=== PATIENT | female | born 1970 | race Caucasian/White ===

== ENCOUNTER 2017-09-23 17:48 | Observation (INO) | payer OTHER ==
[~2017-09-23] VITALS: Ht 175.3 cm; Wt 81.9 kg
[~2017-09-23 17:48] MED LIST: AMITRIPTYLINE; BABY ASPIRIN81 M1 PO; CHANTIX1 MG; Carafate PO; ENDOCET 5-3251 EACH PO; K-Dur PO; LEVAQUIN750 MG PO; METOPROLOL; METOPROLOL TART25 MG PO; MOTRIN800 MG PO; NOHOMEMEDS; PERCOCET 5/31 TABLET PO; PRENATAL 1 PLU1 EACH PO; Phenergan PO; Protonix PO; TOPAMAX25 MG PO; ULTRAM50 MG PO; VENTOLIN HFA18 GM IH; Vicodin,Norco 5/325 PO; WELLBUTRIN XL300 MG PO; ZANAFLEX4 MG PO
[2017-09-23 18:42] LABS: HEMATOCRIT 37.2 % (36.0-46.0); HEMOGLOBIN 12.3 G/DL (11.9-15.5); MCHC 33.1 G/DL (30.0-36.0); MCV 90.7 FL (83-99); PLATELET COUNT 301 K/uL (156-360); RBC DIS.WIDTH-CV 14.2 % (11.8-14.6); RBC DIS.WIDTH-SD 47.7 % (39-53); WHITE BLOOD COUNT 8.7 K/uL (4.1-10.2)
[2017-09-23 18:55] LABS: CHLORIDE 105 mEq/L (99-109); POTASSIUM 4.4 mEq/L (3.7-5.4); SODIUM 138 mEq/L (136-147)
[2017-09-23 18:57] LABS: GLUCOSE 108 mg/dL (70-99)
[2017-09-23 19:01] LABS: CREATININE 0.8 mg/dL (0.6-1.3); GFR ESTIMATE (CALCULATED) > 59 mL/min/; UREA NITROGEN (BUN) 17 mg/dL (9-23)
[2017-09-23 19:08] LABS: TROP-I INTERPRETATION NEGATIVE; TROPONIN-I < 0.01 ng/mL (0.0-0.30)
[2017-09-23] MEDS ORDERED: ALPRAZOLAM0.25 M2 PO (22:12)
[2017-09-23] MEDS ORDERED: ENDOCET 5-3251 EACH PO (22:13)
[2017-09-23] MEDS ORDERED: ASPIR 8181 M1 PO (22:15)
[2017-09-23] MEDS ORDERED: CYANOCOBAL1000 MCG/2 IM (22:15)
[2017-09-23 23:38] VITALS: BP 150/74
[2017-09-24 01:28] LABS: TROP-I INTERPRETATION NEGATIVE; TROPONIN-I < 0.01 ng/mL (0.0-0.30)
[2017-09-24 03:50] VITALS: BP 117/63
[2017-09-24 06:20] LABS: HEMATOCRIT 34.1 % (36.0-46.0); MCHC 32.3 G/DL (30.0-36.0); PLATELET COUNT 259 K/uL (156-360); RBC DIS.WIDTH-CV 14.3 % (11.8-14.6); RBC DIS.WIDTH-SD 47.7 % (39-53); RED BLOOD COUNT 3.79 M/uL (3.80-5.20); WHITE BLOOD COUNT 8.3 K/uL (4.1-10.2)
[2017-09-24 06:39] LABS: TROP-I INTERPRETATION NEGATIVE; TROPONIN-I < 0.01 ng/mL (0.0-0.30)
[2017-09-24 06:44] LABS: CHLORIDE 107 MEQ/L (99-109); CREATININE 0.8 MG/DL (0.6-1.3); GFR ESTIMATE (CALCULATED) > 59 mL/min/; GLUCOSE 100 mg/dL (70-99); POTASSIUM 4.5 MEQ/L (3.7-5.4); SODIUM 139 MEQ/L (136-147); UREA NITROGEN (BUN) 15 mg/dL (9-23)
[2017-09-24 11:33] VITALS: BP 118/56
== END 2017-09-24 14:40 | disposition home or self-care (01) ==
LOC: EME 17:48 → EDOF 22:32 → ENRESERV 22:34 → 5WEST 23:26
PROVIDERS: Hospitalist
DX: J40 Bronchitis, not specified as acute or chronic (principal); M25.512 Pain in left shoulder; M54.9 Dorsalgia, unspecified; R68.84 Jaw pain; R20.0 Anesthesia of skin; R20.2 Paresthesia of skin; I10 Essential (primary) hypertension; I25.10 Atherosclerotic heart disease of native coronary artery without angina pectoris; Z86.73 Personal history of transient ischemic attack (TIA), and cerebral infarction without residual deficits; E11.9 Type 2 diabetes mellitus without complications; E78.5 Hyperlipidemia, unspecified; F17.200 Nicotine dependence, unspecified, uncomplicated; I47.1 Supraventricular tachycardia; Z98.84 Bariatric surgery status; E66.9 Obesity, unspecified; Z68.26 Body mass index [BMI] 26.0-26.9, adult; Z90.49 Acquired absence of other specified parts of digestive tract; Z82.49 Family history of ischemic heart disease and other diseases of the circulatory system
CPT/HCPCS: 71046; 71275; 80048; 84484; 85027; 93005; 99281; 99285; G0378; J2270